=== PATIENT | male | born 1965 | race Caucasian/White ===

== ENCOUNTER 2020-12-15 21:43 | Emergency (ER) | payer MEDICARE, OTHER ==
[2020-12-15 22:23] LABS: HEMOGLOBIN 15.7 gm/dl (14.0-17.5); RED BLOOD COUNT 5.02 M/UL (4.20-5.50); WHITE BLOOD COUNT 9.3 K/UL (4.5-11.0)
[2020-12-15 22:53] LABS: BUN/CREATININE RATIO 15 (0-10)
[2020-12-16] MEDS ORDERED: ASPIRIN CHEWABL81 MG PO (05:06)
== END 2020-12-16 05:20 | disposition home or self-care (01) ==
LOC: ER1 21:43
PROVIDERS: Physician Assistant Medical
DX: R07.9 Chest pain, unspecified (principal); R06.02 Shortness of breath; I10 Essential (primary) hypertension; Z90.49 Acquired absence of other specified parts of digestive tract; Z88.8 Allergy status to other drugs, medicaments and biological substances; Z20.822 Contact with and (suspected) exposure to COVID-19
CPT/HCPCS: 71045; 80053; 82550; 82553; 83874; 84484; 85025; 93005; 99285; U0002